=== PATIENT | male | born 1975 | race American Indian/Alaskan Native ===

== ENCOUNTER 2019-06-15 10:36 | Emergency (ER) | payer SELFPAY ==
[2019-06-15 10:47] VITALS: BP 140/75
[2019-06-15 11:08] LABS: Basophils % (Auto) 0.5 % (0.0-1.8); Eosinophils # (Auto) 0.2 K/mm3 (0.0-0.4); Eosinophils % (Auto) 3.3 % (0.0-4.3); Hematocrit 43.7 % (35.5-45.6); Hemoglobin 14.9 gm/dl (11.8-15.2); Lymphocytes # (Auto) 2.1 K/mm3 (1.2-5.4); Lymphocytes % (Auto) 37.7 % (13.4-35.0); Mean Corpuscular HGB Conc 34 % (32-34); Mean Corpuscular Volume 91 fl (84-94); Monocytes # (Auto) 0.3 K/mm3 (0.0-0.8); Monocytes % (Auto) 6.3 % (0.0-7.3); Platelet Count 194 K/mm3 (140-440); Red Blood Count 4.83 M/mm3 (3.65-5.03)
[2019-06-15] MEDS ORDERED: NACL 0.9% 1000 ML 1,000 ML IV ONE (11:36)
--- NOTE | 2019-06-15 11:42 | Emergency Department Report ---
ED Headache HPI - General Chief Complaint: Weakness Stated Complaint: HEADACHE/PAIN IN EYES/WEAKNESS Time Seen by Provider: 06/15/19 11:33 - History of Present Illness Initial Comments: This is a 44-year-old male with no prior medical history presents to ED complaining frontal, throbbing, intermittent to constant headache that started yesterday and is worsened this morning. Patient states that he took 800 mg ibuprofen about 2 hours ago with no relief. Patient also states that he is tired for the past couple of days. Patient is eating regular drinking fluids regularly so does not sound his symptoms. Patient's diabetes 8-year-old son was recently diagnosed with diabetes so he is worried that he may have that. He denies abdominal pain, Timing/Duration: 24 hours Quality: moderate, achy Head Injury Location: frontal Recent Head Trauma: no recent headache/trauma Allergies/Adverse Reactions: Allergies Tetracyclines Allergy (Verified 06/15/19 10:37) Unknown Home Medications: Ambulatory Orders Butalb/Acetaminophen/Caffeine [Fioricet 50-300-40 mg CAP] 1 cap PO Q8HR #20 cap 06/15/19 ED Review of Systems ROS: Stated complaint: HEADACHE/PAIN IN EYES/WEAKNESS Other details as noted in HPI Comment: All other systems reviewed and negative ED Past Medical Hx - Past Medical History Previous Medical History?: No - Surgical History Past Surgical History?: Yes Additional Surgical History: KNEE - Social History Smoking Status: Never Smoker - Medications Home Medications: Home Medications Medication Instructions Recorded Confirmed Last Taken Type Butalb/Acetaminophen/Caffeine 1 cap PO Q8HR #20 cap 06/15/19 Unknown Rx [Fioricet 50-300-40 mg CAP] ED Physical Exam - General Limitations: No Limitations General appearance: alert, in no apparent distress - Head Head exam: Present: atraumatic, normocephalic - Eye Eye exam: Present: normal appearance - ENT ENT exam: Present: mucous membranes moist - Neck Neck exam: Present: normal inspection - Respiratory Respiratory exam: Present: normal lung sounds bilaterally. Absent: respiratory distress - Cardiovascular Cardiovascular Exam: Present: regular rate, normal rhythm. Absent: systolic mu rmur, diastolic murmur, rubs, gallop - GI/Abdominal GI/Abdominal exam: Present: soft, normal bowel sounds - Rectal Rectal exam: Present: deferred - Extremities Exam Extremities exam: Present: normal inspection - Back Exam Back exam: Present: normal inspection - Neurological Exam Neurological exam: Present: alert, oriented X3, normal gait, reflexes normal - Expanded Neurological Exam Expanded Cerebellar function: Finger to Nose: Normal Motor strength exam: RUE: 5, LUE: 5, RLE: 5, LLE: 5 Best Eye Response (Yovany): (4) open spontaneously Best Motor Response (Yovany): (6) obeys commands Best Verbal Response (Ramsay): (5) oriented Yovany Total: 15 - Psychiatric Psychiatric exam: Present: normal affect, normal mood - Skin Skin exam: Present: warm, dry, intact, normal color. Absent: rash ED Course Vital Signs 06/15/19 06/15/19 10:46 11:21 Temperature 97.9 F Pulse Rate 78 Respiratory 17 15 Rate Blood Pressure 140/75 O2 Sat by Pulse 100 Oximetry ED Medical Decision Making - Lab Data Result diagrams: 06/15/19 10:55 06/15/19 10:55 - Medical Decision Making This is a 44-year-old male presents with acute onset of headache. CBC, CMP, urinalysis all within normal limits. Patient received 1 L of fluids as well as pain medicine in the ED. Discussed the patient follow-up with the primary care physician. Patient was sent home on pain medication. Vital signs are normal patient is in no acute distress. Patient on neurological deficit. He is neurologically stable. Critical care attestation.: If time is entered above; I have spent that time in minutes in the direct care of this critically ill patient, excluding procedure time. ED Disposition Clinical Impression: Acute headache Disposition: DC-01 TO HOME OR SELFCARE Is pt being admited?: No Does the pt Need Aspirin: No Condition: Stable Instructions: Migraine Headache (ED), Acute Headache (ED) Additional Instructions: Make sure to follow up with the primary care physician as discussed. Take all your medications as you've been prescribed. If you have any worsening symptoms or develop new symptoms please return to ED immediately. Prescriptions: Butalb/Acetaminophen/Caffeine [Fioricet 50-300-40 mg CAP] 1 cap PO Q8HR #20 cap Referrals: EDIN NOGUERA MD [Primary Care Provider] - 3-5 Days [facility] [Outside] - 3-5 Days [facility] [Outside] - 3-5 Days Forms: Work/School Release Form(ED) Time of Disposition: 12:27
[2019-06-15 11:56] LABS: Alanine Aminotransferase 17 units/L (7-56); Albumin 4.2 g/dL (3.9-5); BUN/Creatinine Ratio 11; Blood Urea Nitrogen 10 mg/dL (9-20); Calcium 9.1 mg/dL (8.4-10.2); Hemolysis Index 4
[2019-06-15] MEDS ORDERED: COMPAZINE IV ONE (12:30)
== END 2019-06-15 13:17 | disposition home or self-care (01) ==
LOC: EDBD → ED 10:36
DX: R51 Headache (principal); Z79.899 Other long term (current) drug therapy; Z88.1 Allergy status to other antibiotic agents
CPT/HCPCS: 36415; 80053; 85025; 96374; 99283; J0780; J7030